=== PATIENT | male | born 2000 | race Caucasian/White ===

== ENCOUNTER 2020-01-01 15:00 | Observation (INO) ==
[2020-01-01] MEDS ORDERED: NS 0.9% 1000 ml BAG 1,000 ML IV.FLUID IV ONE (15:40)
[2020-01-01] MEDS ORDERED: Ondansetron 4 mg VIAL 2 MG/ML 2 ml VIAL IV ONE ×2 (15:41→17:55)
[2020-01-01] MEDS ORDERED: Al Hydrox/Mg Hydrox/Simet LIQ 30 ML UDC PO ONE (15:46)
[2020-01-01 16:51] LABS: ABS Lymphocytes 0.6 10^3/ul (1.0-4.8); ABS Monocytes 0.7 10^3/ul (0-0.8); ABS Neutrophils 12.5 10^3/ul (1.5-7.7); Hematocrit 51 % (42-52); Hemoglobin 17.6 g/dL (14.0-18.0); Lymphocyte % 4.3 %; Mean Corpuscular HGB Conc 35 g/dL (31-36); Mean Corpuscular Hemoglobin 30 pg (27-31); Mean Corpuscular Volume 87 fL (80-94); Mean Platelet Volume 8.8 fL (7.4-10.4); Nucleated Red Blood Cells % 0.2; Platelet Count 317 10^3/uL (150-450); Red Blood Count 5.83 10^6 /uL (4.18-5.48); Red Cell Distribution Width 12 % (10-15); White Blood Count 13.8 10^3/uL (3.5-10.8)
[2020-01-01 16:58] LABS: Activated Partial Thrombo Time 28.5 seconds (26.0-38.0); INR 1.42 (0.82-1.09)
[2020-01-01 17:28] LABS: Albumin 5.7 g/dL (3.2-5.2); Albumin/Globulin Ratio 1.8 (1-3); BUN/Creatinine Ratio 11.1 (8-20); Calcium 10.8 mg/dL (8.6-10.3); EGFR African American 97.2 (>60); EGFR Non-African American 80.3 (>60); Globulin 3.2 g/dL (2-4); Potassium 3.3 mmol/L (3.5-5.0); Total Bilirubin 1.4 mg/dL (0.2-1.0); Total Protein 8.9 g/dL (6.4-8.9)
[2020-01-01] MEDS ORDERED: ceFOXitin 2 GM IVPREMIX 2 GM/50 ML BAG IVPB ONE (17:57)
[2020-01-01] MEDS ORDERED: Ondansetron 4 mg VIAL 2 MG/ML 2 ml VIAL ONE (18:07)
[2020-01-01] MEDS ORDERED: Iohexol 300 (CONTRAST) 10 ML SDV IV ONE (19:09)
[2020-01-01] MEDS ORDERED: metroNIDAZOLE IV 500 MG/100ML 500 MG/100 ML BAG IVPB ONE (20:11)
[2020-01-01] MEDS ORDERED: NS 0.9% 1000 ml BAG 1,000 ML IV SCH (20:15)
[2020-01-01] MEDS ORDERED: Ondansetron 4 mg VIAL 2 MG/ML 2 ml VIAL IV PRN (23:16)
[2020-01-01 23:37] LABS: Urine Appearance Clear; Urine Bilirubin Negative (Negative); Urine Blood Negative (Negative); Urine Color Yellow; Urine Glucose Negative (Negative); Urine Ketones Negative (Negative); Urine Nitrite Negative (Negative); Urine Protein Negative (Negative); Urine Urobilinogen Negative (Negative)
[2020-01-01] MEDS ORDERED: Zosyn 3.375 GM IV - ED ONCE IV ONE (23:45)
[2020-01-02] MEDS: NS 0.9% 1000 ml BAG 1,000 ML IV SCH ×2 (00:46→04:33)
[2020-01-02] MEDS: Morphine 2 MG/ML SYRINGE IV PRN ×4 (00:52→08:04)
[2020-01-02] MEDS ORDERED: Piperacillin/Tazobactam VIAL 3.375 GM in NS 0.9% 100 ml BAG 100 ML IVPB SCH (04:30)
[2020-01-02] MEDS ORDERED: Lidocaine 2% PF 5 ML VIAL ONE (10:26)
[2020-01-02] MEDS ORDERED: fentaNYL 100 mcg/2 ml 50 MCG/ML VIAL ONE (10:27)
[2020-01-02] MEDS ORDERED: Propofol 10 MG/ML 20 ML BTL ONE (10:27)
[2020-01-02] MEDS ORDERED: Midazolam 2 mg/2 ml VIAL 1 mg/ml 2 ml VIAL (2 mg) ONE (10:27)
[2020-01-02] MEDS ORDERED: Succinylcholine 200 mg VIAL 20 mg/ml 10 ml VIAL (200 mg) ONE (10:30)
[2020-01-02] MEDS ORDERED: Rocuronium 50 mg VIAL 10 mg/ml 5 ml VIAL (50 mg) ONE ×2 (10:30→11:57)
[2020-01-02] MEDS ORDERED: Acetaminophen IV 1 GM/100ML 100 ML ONE (10:32)
[2020-01-02] MEDS ORDERED: Metoclopramide 5 MG/ML VIAL (10 mg) ONE (10:32)
[2020-01-02] MEDS ORDERED: Sugammadex 500 MG/5 ML 5 ml VIAL IV PUSH ONE (10:32)
[2020-01-02] MEDS ORDERED: Ondansetron 4 mg VIAL 2 MG/ML 2 ml VIAL ONE (10:32)
[2020-01-02] MEDS ORDERED: Dexamethasone IV 4 MG/ML VIAL 1 ml VIAL ONE (10:32)
[2020-01-02] MEDS ORDERED: Bupivacaine 0.25% SDV 30 ML ONE (10:37)
[2020-01-02] MEDS ORDERED: Phenylephrine 40 mcg/mL 10mL (400mcg) SYRINGE ONE (11:25)
[2020-01-02] MEDS ORDERED: fentaNYL 100 mcg/2 ml 50 MCG/ML VIAL IV PRN (11:27)
[2020-01-02] MEDS ORDERED: Naloxone 0.4 mg VIAL 0.4 mg/ml 1 ml VIAL IV PRN (11:27)
[2020-01-02] MEDS ORDERED: DiMENhydriNATE IV 50 mg/ml 1 ml VIAL IV PUSH PRN (11:27)
[2020-01-02 14:33] VITALS: BP 126/76
== END 2020-01-02 14:30 | disposition home or self-care (01) | DRG 225 ==
LOC: EDSEX → ED 15:00 → MED 23:16 → INTOOBSV 23:16 → MED 01-02 00:37
PROVIDERS: ADMIT Surgery; ATTEND Surgery